=== PATIENT | female | born 1955 | race Caucasian/White ===

== ENCOUNTER 2017-09-23 07:28 | Outpatient (CLI) | payer OTHER | END 2017-09-23 07:32 | disposition home or self-care (01) | LOC: SONOGRAMA 07:28 | DX: E04.2 Nontoxic multinodular goiter (principal) ==

== ENCOUNTER → 2020-09-11 | Outpatient (CLI) | payer OTHER | END | disposition home or self-care (01) | LOC: RX STUDY 10:04 | PROVIDERS: ATTEND Internal Medicine | DX: R13.12 Dysphagia, oropharyngeal phase (principal) ==